=== PATIENT | female | born 1985 | race Caucasian/White ===

== ENCOUNTER 2016-05-23 04:39 | Emergency (ER) | payer BC, OTHER ==
[~2016-05-23] VITALS: Ht 165.1 cm; Wt 66.0 kg
[~2016-05-23 04:39] MED LIST: LEVO1TAB48 PO; ONDA4TAB35 PO
[2016-05-23 04:40] VITALS: Ht 165.1 cm; Wt 66.0 kg
--- NOTE | 2016-05-23 04:47 | ERA ---
ER Documentation Chief Complaint Date/Time DATE: 05/23/16 TIME: 04:47 Chief Complaint Right wrist pain HPI The patient is a 30-year-old female, presenting with acute right wrist and right hand pain after she slipped and fell in the ER. She is an RN in the emergency department. The pain is 5/10, worse with movement. She denies any other injury. She does not smoke, drink Past medical history: Migraine, GERD Past surgical history: None ROS All systems reviewed and are negative except as per history of present illness. Medications Home Meds Active Scripts Ibuprofen* (Motrin*) 600 Mg Tab, 600 MG PO Q6H Y for PAIN AND OR ELEVATED TEMP, #30 TAB Prov:SANDIE DUNCAN MD 05/23/16 Ondansetron Hcl* (Zofran* ODT) 4 mg -ODT Tab.disper, 4 MG PO Q6 Y for NAUSEA AND /OR VOMITING, #14 TAB Prov:JC CALI DO 07/27/15 Reported Medications Levonorgestrel-Eth Estradiol (MARLISSA) 1 Each Tablet, 1 EACH PO DAILY, TAB 07/27/15 Allergies Allergies: Coded Allergies: No Known Allergy (Verified , 12/29/14) PMhx/Soc History of Surgery: No Anesthesia Reaction: No Hx Neurological Disorder: No Hx Respiratory Disorders: No Hx Cardiac Disorders: Yes (HTN) Hx Psychiatric Problems: No Hx Miscellaneous Medical Probl: No Hx Alcohol Use: Yes Hx Substance Use: No Hx Tobacco Use: No Physical Exam Vitals Vital Signs Date Time Temp Pulse Resp B/P Pulse Ox O2 Delivery O2 Flow Rate FiO2 05/23/16 04:40 98.2 93 20 128/87 99 Physical Exam Const: No acute distress. Head: Atraumatic. Eyes: Normal Conjunctiva. ENT: Normal External Ears, Nose and Mouth. Neck: Full range of motion. No meningismus. Resp: Clear to auscultation bilaterally. Cardio: Regular rate and rhythm, no murmurs. Abd: Soft, non distended, normal bowel sounds, non tender. Skin: No petechiae or rashes. Back: No midline or flank tenderness. Ext: Right wrist is minimally tender at the lateral wrist, no ecchymosis, no laceration. Right hand is moderately tender at the base of the right thumb, with mild edema, no ecchymosis Neur: Awake and alert. No focal deficit Psych: Normal Mood and Affect. Procedures/MDM [place] [id number] Radiology Main Line: [phone] DIAGNOSTIC IMAGING REPORT Patient: KRISH WAGNER : 1985 Age: 30 Sex: F MR #: [id number] DOS: 05/23/16445 Ordering MD: SANDIE DUNCAN MD Location: E/R Room/Bed: PROCEDURE: XR Wrist. CLINICAL INDICATION: Right wrist pain following injury TECHNIQUE: AP, lateral and oblique views of the right wrist were performed. COMPARISON: No prior studies are available for comparison. FINDINGS: The osseous structures demonstrate normal alignment and mineralization. No acute fracture or dislocation is seen. The joint spaces are well preserved. No osseous erosions are seen. The soft tissues are unremarkable. IMPRESSION: Unremarkable right wrist x-ray series. RPTAT: HH .Allison Leon MD, MD Date Time Electronically viewed and signed by .Allison Leon MD, MD on 05/23/2016 05 :08 .G/ CC: SANDIE DUNCAN MD [place] [id number] Radiology Main Line: [phone] DIAGNOSTIC IMAGING REPORT Patient: KRISH WAGNER : 1985 Age: 30 Sex: F MR #: [id number] DOS: 05/23/16445 Ordering MD: SANDIE DUNCAN MD Location: E/R Room/Bed: PROCEDURE: XR Hand. CLINICAL INDICATION: Right hand pain following injury. TECHNIQUE: Three views of the right hand were obtained. COMPARISON: No prior studies are available for comparison. FINDINGS: The osseous structures demonstrate normal alignment and mineralization. No acute fracture or dislocation is seen. The joint spaces are well preserved. No significant soft tissue abnormalities are appreciated. IMPRESSION: 1. Unremarkable right hand x-ray series. 2. No acute fracture or dislocation is seen. RPTAT: HH .Allison Leon MD, MD Date Time Electronically viewed and signed by .Allison Leon MD, MD on 05/23/2016 05 :07 .G/ CC: SANDIE DUNCAN MD MEDICAL MAKING DECISION: The patient is a 30-year-old female, presenting with acute right wrist and right hand sprain. She took her Motrin with good response. The differential diagnoses considered include but are not limited to fracture, contusion, sprain, internal derangement Departure Diagnosis: Primary Impression: Hand pain, right Additional Impression: Wrist pain, right Condition: Good Comments She was discharged with Motrin she was advised that if the pain is persistent, she would need to have an MRI for further evaluation I discussed the findings with the patient. I advised the patient to follow-up with the primary physician in about 1-2 days, sooner if needed and return if any concern. The patient's blood pressure was elevated (>120/80) but appears stable without evidence of hypertension emergency or urgency. The patient was counseled about the risks of hypertension and urged to pursue outpatient monitoring and therapy within a week with their primary care physician. SANDIE DUNCAN MD May 23, 2016 04:47
--- NOTE | 2016-05-23 05:07 | RADRPT ---
PROCEDURE: XR Hand. CLINICAL INDICATION: Right hand pain following injury. TECHNIQUE: Three views of the right hand were obtained. COMPARISON: No prior studies are available for comparison. FINDINGS: The osseous structures demonstrate normal alignment and mineralization. No acute fracture or disloc ation is seen. The joint spaces are well preserved. No significant soft tissue abnormalities are a ppreciated. IMPRESSION: 1. Unremarkable right hand x-ray series. 2. No acute fracture or dislocation is seen. RPTAT: HH .Allison Leon MD, MD Date Time Electronically viewed and signed by .Allison Leon MD, on 05/23/2016 05:07 .G/
--- NOTE | 2016-05-23 05:09 | RADRPT ---
PROCEDURE: XR Wrist. CLINICAL INDICATION: Right wrist pain following injury TECHNIQUE: AP, lateral and oblique views of the right wrist were performed. COMPARISON: No prior studies are available for comparison. FINDINGS: The osseous structures demonstrate normal alignment and mineralization. No acute fracture or disloc ation is seen. The joint spaces are well preserved. No osseous erosions are seen. The soft tissue s are unremarkable. IMPRESSION: Unremarkable right wrist x-ray series. RPTAT: HH .Allison Leon MD, Date Time Electronically viewed and signed by .Allison Leon MD, on 05/23/2016 05:08 .G/
[2016-05-23] MEDS ORDERED: IBUP-1542 PO (05:30)
== END 2016-05-23 05:37 | disposition home or self-care (01) ==
LOC: E/R 04:39
DX: S69.91XA Unspecified injury of right wrist, hand and finger(s), initial encounter (principal); I10 Essential (primary) hypertension; W01.0XXA Fall on same level from slipping, tripping and stumbling without subsequent striking against object, initial encounter; Y92.9 Unspecified place or not applicable

== ENCOUNTER 2016-11-13 21:22 | Emergency (ER) | payer BC ==
[~2016-11-13] VITALS: Ht 162.6 cm; Wt 63.6 kg
[~2016-11-13 21:22] MED LIST changes: +IBUP-1542 PO
[2016-11-13 21:27] VITALS: Ht 162.6 cm; Wt 63.6 kg
[2016-11-13] MEDS ORDERED: ONDANSETRON 4 MG INJ IV STA (22:03)
[2016-11-13 22:16] LABS: ADD SCAN DIFF NO
[2016-11-13 22:18] LABS: BASOPHILS % 0.5 % (0.0-2.0); EOSINOPHILS # 0.1 10^3/ul (0.0-0.5); EOSINOPHILS % 0.9 % (0.0-7.0); LYMPHOCYTES # 2.3 10^3/ul (0.8-2.9); LYMPHOCYTES % 28.3 % (15.0-51.0); MEAN CORPUSCULAR HEMOGLOBIN 30.3 pg (29.0-33.0); MEAN CORPUSCULAR HGB CONC 33.3 g/dl (32.0-37.0); MEAN CORPUSCULAR VOLUME 90.9 fl (82.0-101.0); MEAN PLATELET VOLUME 10.8 fl (7.4-10.4); MONOCYTE # 0.7 10^3/ul (0.3-0.9); MONOCYTES % 8.7 % (0.0-11.0); NEUTROPHIL # 4.9 10^3/ul (1.6-7.5); NEUTROPHILS % 61.4 % (39.0-77.0); PLATELET COUNT 302 10^3/UL (140-415); RED BLOOD COUNT 4.95 10^6/ul (4.20-5.40); RED CELL DISTRIBUTION WIDTH 12.7 % (11.5-14.5)
[2016-11-13 22:32] LABS: ANION GAP 18 (8-16); BLOOD UREA NITROGEN 15 mg/dl (7-20); CALCIUM 9.2 mg/dl (8.4-10.2); CARBON DIOXIDE 23 mmol/L (21-31); CHLORIDE 105 mmol/L (97-110); CREATININE 0.75 mg/dl (0.44-1.00); GLUCOSE 103 mg/dl (70-220); POTASSIUM 3.5 mmol/L (3.5-5.1); SODIUM 142 mmol/L (135-144)
[2016-11-13 22:46] LABS: TROPONIN-I < 0.012 ng/ml (0.00-0.12)
[2016-11-13 22:59] LABS: THYROID STIMULATING HORMONE 0.755 MIU/L (0.465-4.680)
[2016-11-13 23:37] VITALS: BP 124/78; PULSE 78; RESP 18; TEMP 99.2
--- NOTE | 2016-11-14 01:45 | ERD ---
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 The patient says she has had these episodes off and on for 3 years. She said they were happening every other month now they occur about every month. There is no precipitating event. She is not taking any supplements or nutrients or stimulants. She says that she has had heart rate in the 120s-150s range when this occurs. Does not have any syncope. Does not have any chest pain no shortness of breath no loss of consciousness. Currently she is asymptomatic. ROS All systems reviewed and are negative except as per history of present illness. Medications Home Meds Active Scripts Ibuprofen* (Motrin*) 600 Mg Tab, 600 MG PO Q6H Y for PAIN AND OR ELEVATED TEMP, #30 TAB Prov:SANDIE DUNCAN MD 05/23/16 Ondansetron Hcl* (Zofran* ODT) 4 mg -ODT Tab.disper, 4 MG PO Q6 Y for NAUSEA AND /OR VOMITING, #14 TAB Prov:JC CALI DO 07/27/15 Reported Medications Levonorgestrel-Eth Estradiol (MARLISSA) 1 Each Tablet, 1 EACH PO DAILY, TAB 07/27/15 Allergies Allergies: Coded Allergies: No Known Allergy (Verified , 12/29/14) PMhx/Soc History of Surgery: No Anesthesia Reaction: No Hx Neurological Disorder: No Hx Respiratory Disorders: No Hx Cardiac Disorders: Yes (HTN) Hx Psychiatric Problems: No Hx Miscellaneous Medical Probl: No Hx Alcohol Use: Yes Hx Substance Use: No Hx Tobacco Use: No Smoking Status: Never smoker FmHx Family History: No coronary disease Physical Exam Vitals Vital Signs Date Time Temp Pulse Resp B/P Pulse Ox O2 Delivery O2 Flow Rate FiO2 11/13/16 23:37 99.2 78 18 124/78 100 Room Air 11/13/16 21:27 98.6 122 17 136/81 100 Physical Exam Const: Well-developed, well-nourished Head: Atraumatic, normocephalic Eyes: Normal Conjunctiva, PERRLA, EOMI, normal sclera, no nystagmus ENT: Normal External Ears, Nose and Mouth, moist mucus membranes. Neck: Full range of motion. No meningismus, no lymphadenopathy. Resp: Clear to auscultation bilaterally, no wheezing, rhonchi, rales Cardio: Regular rate and rhythm, no murmurs, S1 S2 present Abd: Soft, non tender x 4, non distended. Normal bowel sounds, no guarding or rebound, no pulsitile abdominal masses or bruits Skin: No petechiae or rashes, no ecchymosis , no maculopapular rash Back: No midline or flank tenderness Ext: No cyanosis, or edema, FROM x 4, normal inspection, neurovascularly intact x 4 Neur: Awake and alert, STR 5/5 x 4, sensation intact x 4, no focal findings, cerebellum intact Psych: Normal Mood and Affect Result Diagram: 11/13/16213111/13/162131 Results 24 hrs Laboratory Tests Test 11/13/16 21:32 White Blood Count 8.010^3/ul Red Blood Count 4.9510^6/ul Hemoglobin 15.0g/dl Hematocrit 45.0% Mean Corpuscular Volume 90.9fl Mean Corpuscular Hemoglobin 30.3pg Mean Corpuscular Hemoglobin Concent 33.3g/dl Red Cell Distribution Width 12.7% Platelet Count 38051^3/UL Mean Platelet Volume 10.8fl Neutrophils % 61.4% Lymphocytes % 28.3% Monocytes % 8.7% Eosinophils % 0.9% Basophils % 0.5% Nucleated Red Blood Cells % 0.0/100WBC Neutrophils # 4.910^3/ul Lymphocytes # 2.310^3/ul Monocytes # 0.710^3/ul Eosinophils # 0.110^3/ul Basophils # 0.010^3/ul Nucleated Red Blood Cells # 0.010^3/ul Sodium Level 142mmol/L Potassium Level 3.5mmol/L Chloride Level 105mmol/L Carbon Dioxide Level 23mmol/L Anion Gap 18 Blood Urea Nitrogen 15mg/dl Creatinine 0.75mg/dl Glucose Level 103mg/dl Calcium Level 9.2mg/dl Troponin I < 0.012ng/ml Thyroid Stimulating Hormone (TSH) 0.755MIU/L Free Thyroxine 1.11ng/dl Current Medications Medications (Trade) Dose Ordered Sig/Werner Route PRN Reason Start Time Stop Time Status Last Admin Dose Admin Ondansetron HCl (Zofran Inj) 4 mg ONCE STAT IV 11/13/16 22:03 11/13/16 22:05 DC 11/13/16 22:12 Procedures/MDM EKG: Rate/Rhythm: Normal Sinus Rhythm,NL intervals QRS, ST, QT: NORMAL WI, QRS, QT] Impression: NORMAL EKG Heart rate was in 153-155 range initially and then it was normal on exam. Patient has multiple episodes of this there is no evidence of hyperthyroidism. The patient needs to wear a Holter monitor or have an EP study. She will follow -up with her primary or center mgr Departure Diagnosis: Primary Impression: Palpitations Condition: Stable Patient Instructions: Palpitations JANET TANNER DO Nov 14, 2016 01:44
== END 2016-11-14 00:25 | disposition home or self-care (01) ==
LOC: FTE 21:22
DX: R00.2 Palpitations (principal); R11.2 Nausea with vomiting, unspecified; I10 Essential (primary) hypertension
CPT/HCPCS: 36415; 80048; 84439; 84443; 84484; 85025; 93005; 96374; 99284; J2405

== ENCOUNTER 2016-12-22 08:33 | Emergency (ER) | END 2016-12-22 13:20 | disposition home or self-care (01) | DX: G43.009 Migraine without aura, not intractable, without status migrainosus (principal); R11.2 Nausea with vomiting, unspecified; R40.2142 Coma scale, eyes open, spontaneous, at arrival to emergency department; R40.2252 Coma scale, best verbal response, oriented, at arrival to emergency department; R40.2362 Coma scale, best motor response, obeys commands, at arrival to emergency department | CPT/HCPCS: 70496; 80048; 81001; 85025; 85610; 85730; 96374; 96375; 96376; 99285; J0780; J1200; J1885; J2405; J7030; Q9967 ==

== ENCOUNTER 2017-10-15 19:43 | Emergency (ER) | END 2017-10-15 21:15 | disposition home or self-care (01) ==

== ENCOUNTER 2018-04-06 00:28 | Emergency (ER) | END 2018-04-06 02:03 | disposition home or self-care (01) ==

== ENCOUNTER 2018-07-09 02:03 | Emergency (ER) | payer BC ==
[~2018-07-09] VITALS: Ht 160 cm; Wt 81.8 kg
[~2018-07-09 02:03] MED LIST changes: +ALBU18HF INHALATION; +ALBU8.5H8 INH; +AZIT250T PO; +HYDR15SO8 PO; +IBUP800T48 PO; +ONDA4TAB14 PO; -ONDA4TAB35 PO; +PRED20TA PO
[2018-07-09] MEDS ORDERED: ONDANSETRON (ODT) 4 MG TAB ODT ONE (02:12)
--- NOTE | 2018-07-09 02:12 | ERD ---
ER Documentation Chief Complaint Chief Complaint palpitation HPI The patient is a 32-year-old female, presenting to the ER because of intermittent palpitation, associated with mild nausea and chest discomfort, denies syncope, near syncope, neck pain, abdominal pain, vomiting with dysuria. She does not smoke nor drink Medical/surgical history: None ROS All systems reviewed and are negative except as per history of present illness. Medications Home Meds Active Scripts Albuterol Sulfate* (Ventolin HFA*) 18 Gm Hfa.aer.ad, 2 PUFF INHALATION Q4H, #1 INHALER Prov:AMADOR BAUMAN 04/06/18 Prednisone* (Prednisone*) 20 Mg Tab, 40 MG PO DAILY for 4 Days, TAB Prov:AMADOR BAUMAN 04/06/18 Azithromycin* (Zithromax*) 250 Mg Tablet, 250 MG PO .ZPACK DIRECTED, #6 TAB TAKE 500 MG (2 TABS) THE FIRST DAY THEN 250 MG (1 TAB) DAYS 2-5 Prov:AMADOR BAUMAN 04/06/18 Hydrocodone Bit-Acetaminophen* (Lortab* Liq) 7.5 Mg-325 Mg/15 Ml Solution, 15 ML PO Q6H PRN for COUGH, #150 ML Prov:JANET TANNER DO 10/15/17 Ondansetron (Ondansetron Odt) 4 Mg Tab.rapdis, 4 MG PO Q6H PRN for NAUSEA AND/OR VOMITING, #30 TAB Prov:SYLVIE MUSA MD 12/22/16 Ibuprofen* (Motrin*) 800 Mg Tab, 800 MG PO Q6H PRN for PAIN AND OR ELEVATED TEMP, #30 TAB Prov:SYLVIE MUSA MD 12/22/16 Reported Medications Levonorgestrel-Eth Estradiol (MARLISSA) 1 Each Tablet, 1 EACH PO DAILY, TAB 07/27/15 Discontinued Scripts Prednisone* (Prednisone*) 20 Mg Tab, 60 MG PO DAILY for 5 Days, TAB Prov:JANET TANNER DO 10/15/17 Albuterol Sulfate* (Proair HFA*) 8.5 Gm Hfa.aer.ad, 2 PUFF INH Q4, #1 INHALER Prov:JANET TANNER DO 10/15/17 Ibuprofen* (Motrin*) 600 Mg Tab, 600 MG PO Q6H PRN for PAIN AND OR ELEVATED TEMP, #30 TAB Prov:SANDIE DUNCAN MD 05/23/16 Allergies Allergies: Coded Allergies: No Known Allergy (Unverified , 07/09/18) PMhx/Soc History of Surgery: No Anesthesia Reaction: No Hx Neurological Disorder: Yes (migraine) Hx Respiratory Disorders: No Hx Cardiac Disorders: No Hx Psychiatric Problems: No Hx Miscellaneous Medical Probl: Yes (GERD) Hx Alcohol Use: No Hx Substance Use: No Hx Tobacco Use: No Physical Exam Vitals Vital Signs Date Temp Pulse Resp B/P (MAP) Pulse Ox O2 O2 Flow FiO2 Time Delivery Rate 07/09/18 103 16 128/83 100 Room Air 04:14 (98) 07/09/18 98.4 148 20 124/85 100 02:14 (98) Physical Exam Const: No acute distress. Head: Atraumatic. Eyes: Normal Conjunctiva. ENT: Normal External Ears, Nose and Mouth. Neck: Full range of motion. No meningismus. Resp: Clear to auscultation bilaterally. Cardio: Regular rate and rhythm. Abd: Soft, non distended, normal bowel sounds, non tender. Skin: No petechiae or rashes. Back: No midline or flank tenderness. Ext: No cyanosis, or edema. Neur: Awake and alert. No focal deficit Psych: Normal Mood and Affect. Result Diagram: 07/09/18 0207 07/09/18 0207 Results 24 hrs Laboratory Tests Test 07/09/18 02:07 White Blood Count 8.6 10^3/ul Red Blood Count 4.77 10^6/ul Hemoglobin 14.5 g/dl Hematocrit 43.2 % Mean Corpuscular Volume 90.6 fl Mean Corpuscular Hemoglobin 30.4 pg Mean Corpuscular Hemoglobin Concent 33.6 g/dl Red Cell Distribution Width 12.4 % Platelet Count 297 10^3/UL Mean Platelet Volume 10.5 fl Immature Granulocytes % 0.300 % Neutrophils % 66.0 % Lymphocytes % 28.6 % Monocytes % 4.7 % Eosinophils % 0.1 % Basophils % 0.3 % Nucleated Red Blood Cells % 0.0 /100WBC Immature Granulocytes # 0.030 10^3/ul Neutrophils # 5.7 10^3/ul Lymphocytes # 2.5 10^3/ul Monocytes # 0.4 10^3/ul Eosinophils # 0.0 10^3/ul Basophils # 0.0 10^3/ul Nucleated Red Blood Cells # 0.0 10^3/ul D-Dimer < 220.00 ng/ml D-Dimer Comment Sodium Level 143 mmol/L Potassium Level 3.7 mmol/L Chloride Level 105 mmol/L Carbon Dioxide Level 23 mmol/L Anion Gap 15 Blood Urea Nitrogen 12 mg/dl Creatinine 0.72 mg/dl Est Glomerular Filtrat Rate mL/min > 60 mL/min Glucose Level 137 mg/dl Calcium Level 9.3 mg/dl Total Bilirubin 0.4 mg/dl Direct Bilirubin 0.00 mg/dl Indirect Bilirubin 0.4 mg/dl Aspartate Amino Transf (AST/SGOT) 25 IU/L Alanine Aminotransferase (ALT/SGPT) 30 IU/L Alkaline Phosphatase 79 IU/L Troponin I < 0.012 ng/ml Total Protein 8.3 g/dl Albumin 4.7 g/dl Globulin 3.60 g/dl Albumin/Globulin Ratio 1.30 Thyroid Stimulating Hormone (TSH) 0.732 MIU/L Beta HCG, Quantitative < 2.4 mIU/ml Current Medications Medications Dose Sig/Werner Start Time Status Last (Trade) Ordered Route PRN Stop Time Admin Dose Reason Admin Ondansetron 4 mg ONCE ONCE 07/09/18 DC 07/09/18 HCl (Zofran ODT 02:12 02:17 Odt) 07/09/18 02:13 Procedures/MDM EK:24 AM read by emergency physician Rate/Rhythm: Normal Sinus Rhythm 81 beats/min QRS, ST, T-waves: No ST elevation, no T inversion, SA Impression: Abnormal EKG EKG: At 2:25 AM read by emergency physician Rate/Rhythm: Sinus tachycardia 143 beats/min QRS, ST, T-waves: No ST elevation, no T inversion Impression: Abnormal EKG MEDICAL MAKING DECISION: The patient is a 32-year-old female, presenting with acute palpitation of unclear etiology, is above outpatient follow-up The differential diagnoses considered include but are not limited to bradycardia tachycardia syndrome, arrhythmia, thyroid dz Departure Diagnosis: Primary Impression: Palpitations Condition: Good Comments The patient's blood pressure was elevated (>120/80) but appears stable without evidence of hypertension emergency or urgency. The patient was counseled about the risks of hypertension and urged to pursue outpatient monitoring and therapy within a week with their primary care physician. I discussed the findings with the patient. I advised the patient to follow-up with the primary physician/ cardiology Dr Neal in about 2-3 days, sooner if needed and return if any concern. Disclaimer: Inadvertent spelling and grammatical errors are likely due to EHR/dictation software use and do not reflect on the overall quality of patient care. Also, please note that the electronic time recorded on this note does not necessarily reflect the actual time of the patient encounter. SANDIE DUNCAN MD Jul 09, 2018 02:12
[2018-07-09 02:14] VITALS: Ht 160 cm; Wt 81.8 kg
[2018-07-09 04:14] VITALS: BP 128/83; PULSE 103; RESP 16
== END 2018-07-09 04:16 | disposition home or self-care (01) ==
LOC: E/R 02:03
DX: R00.2 Palpitations (principal); R11.0 Nausea
CPT/HCPCS: 80053; 84443; 84484; 84702; 85025; 85378; 93005

== ENCOUNTER 2018-08-09 21:34 | Emergency (ER) | payer BC ==
[~2018-08-09] VITALS: Wt 81.8 kg
[~2018-08-09 21:34] MED LIST changes: -ALBU8.5H8 INH; -IBUP-1542 PO
[2018-08-09] MEDS ORDERED: PROCHLORPERAZINE 10 MG INJ IV STA (21:48)
[2018-08-09] MEDS ORDERED: DIPHENHYDRAMINE 50 MG INJ IV STA (21:48)
[2018-08-09] MEDS ORDERED: SOD CHLORIDE 0.9% 1,000 ML IV STA (21:48)
[2018-08-09] MEDS ORDERED: KETOROLAC 30 MG INJ IV STA (21:48)
[2018-08-09] MEDS ORDERED: BUTA1CAP38 PO (23:13)
[2018-08-09 23:39] VITALS: BP 100/68; PULSE 71; RESP 19
--- NOTE | 2018-08-10 03:38 | ERD ---
ER Documentation Chief Complaint Chief Complaint headache and vomiting since yesterday HPI 32-year-old female presenting with left-sided headache that started yesterday. She has associated photophobia, nausea, and vomiting. She states that this is typical of her migraines. Usually her migraines improved with the use of Excedrin or ibuprofen, however at this time those medications did not help significantly but did help slightly. She states that the pain is not any different than her usual migraines. The pain was gradual in onset. It is on the left side of her head and face, nonradiating. ROS All systems reviewed and are negative except as per history of present illness. Medications Home Meds Active Scripts Aeoxatpwnn-Brkkvjqoojtid-Ywvbxybl* (Fioricet*) 50-300-40 Mg Capsule, 1 CAP PO Q4H PRN for HEADACHE, #20 CAP Prov:MARIEL MEDINA MD 08/09/18 Albuterol Sulfate* (Ventolin HFA*) 18 Gm Hfa.aer.ad, 2 PUFF INHALATION Q4H, #1 INHALER Prov:AMADOR BAUMAN 04/06/18 Prednisone* (Prednisone*) 20 Mg Tab, 40 MG PO DAILY for 4 Days, TAB Prov:AMADOR BAUMAN 04/06/18 Azithromycin* (Zithromax*) 250 Mg Tablet, 250 MG PO .ZPACK DIRECTED, #6 TAB TAKE 500 MG (2 TABS) THE FIRST DAY THEN 250 MG (1 TAB) DAYS 2-5 Prov:AMADOR BAUMAN 04/06/18 Hydrocodone Bit-Acetaminophen* (Lortab* Liq) 7.5 Mg-325 Mg/15 Ml Solution, 15 ML PO Q6H PRN for COUGH, #150 ML Prov:JANET TANNER DO 10/15/17 Ondansetron (Ondansetron Odt) 4 Mg Tab.rapdis, 4 MG PO Q6H PRN for NAUSEA AND/OR VOMITING, #30 TAB Prov:SYLVIE MUSA MD 12/22/16 Ibuprofen* (Motrin*) 800 Mg Tab, 800 MG PO Q6H PRN for PAIN AND OR ELEVATED TEMP, #30 TAB Prov:SYLVIE MUSA MD 12/22/16 Reported Medications Levonorgestrel-Eth Estradiol (MARLISSA) 1 Each Tablet, 1 EACH PO DAILY, TAB 07/27/15 Allergies Allergies: Coded Allergies: No Known Allergy (Unverified , 07/09/18) PMhx/Soc History of Surgery: No Anesthesia Reaction: No Hx Neurological Disorder: Yes (migraine) Hx Respiratory Disorders: No Hx Cardiac Disorders: No Hx Psychiatric Problems: No Hx Miscellaneous Medical Probl: Yes (GERD) Hx Alcohol Use: Yes (social) Hx Substance Use: No Hx Tobacco Use: No Smoking Status: Never smoker FmHx Family History: No diabetes Physical Exam Vitals Vital Signs Date Temp Pulse Resp B/P (MAP) Pulse Ox O2 O2 Flow FiO2 Time Delivery Rate 08/09/18 98.2 71 19 100/68 99 Room Air 23:39 (79) 08/09/18 87 19 125/90 98 Room Air 22:19 (102) 08/09/18 21:40 Physical Exam Const: Mild distress due to the pain Head: Atraumatic Eyes: Normal Conjunctiva, PERRLA, EOMI, no nystagmus ENT: Normal External Ears, Nose and Mouth. Neck: Full range of motion. No meningismus. Resp: Clear to auscultation bilaterally Cardio: Regular rate and rhythm, no murmurs Abd: Soft, non tender, non distended. Normal bowel sounds Skin: No petechiae or rashes Back: No midline or flank tenderness Ext: No cyanosis, or edema Neur: Awake and alert, oriented x3, cranial nerves intact, normal speech, strength and sensations grossly intact in all 4 extremities Psych: Normal Mood and Affect Results 24 hrs Laboratory Tests Test 08/09/18 22:10 POC Beta HCG, Qualitative NEGATIVE Current Medications Medications Dose Sig/Werner Start Time Status Last (Trade) Ordered Route PRN Stop Time Admin Dose Reason Admin Sodium 1,000 ml @ Q1H STAT 08/09/18 DC 08/09/18 Chloride 1,000 mls/hr IV 21:48 22:00 08/09/18 22:47 10 mg ONCE STAT 08/09/18 DC 08/09/18 Prochlorperaz IV 21:48 21:59 ine 08/09/18 21:50 (Compazine Inj) Ketorolac 30 mg ONCE STAT 08/09/18 DC 08/09/18 Tromethamine IV 21:48 22:00 (Toradol) 08/09/18 21:50 25 mg ONCE STAT 08/09/18 DC 08/09/18 Diphenhydrami IV 21:48 21:59 ne HCl 08/09/18 21:50 (Benadryl) Procedures/MDM Patient is presenting with her typical migraine, not relieved with usual therapies at home. Vitals were unremarkable. She was treated with IV fluids, Toradol, Benadryl, and Compazine IV. Upon reevaluation, patient's neurologic symptoms have stabilized. No e/o meningitis, intracranial bleed, seizure, stroke. Patient is stable for discharge. Prescription for Fioricet given. Return precautions discussed. Departure Diagnosis: Primary Impression: Migraine Migraine type: unspecified Status migrainosus presence: without status migrainosus Intractability: not intractable Qualified Codes: G43.909 - Migraine, unspecified, not intractable, without status migrainosus Condition: Stable Patient Instructions: Migraines and Cluster Headaches MARIEL MEDINA MD Aug 10, 2018 03:38
== END 2018-08-09 23:41 | disposition home or self-care (01) ==
LOC: E/R 21:34
DX: G43.909 Migraine, unspecified, not intractable, without status migrainosus (principal)
CPT/HCPCS: 36415; 81025; 96374; 96375; 99284; J0780; J1200; J1885; J7030

== ENCOUNTER → 2018-08-26 | Emergency (ER) | payer BC ==
[~2018-08-26] VITALS: Ht 167.6 cm; Wt 81.8 kg
[~2018-08-26] MED LIST changes: +BUTA1CAP38 PO; +CIPR-193 PO; +CIPROFLOXACIN 500 MG TAB PO ONE
[2018-08-26 19:58] VITALS: BP 143/95; PULSE 100; RESP 18; Ht 167.6 cm; Wt 81.8 kg
--- NOTE | 2018-08-26 20:08 | ERD ---
ER Documentation Chief Complaint Chief Complaint dysuria x's 2 days HPI 32-year-old female presenting with dysuria for the past 2 days with frequency and urgency. No associated fever, chills, nausea, vomiting, abdominal pain, back pain, or hematuria. ROS All systems reviewed and are negative except as per history of present illness. Medications Home Meds Active Scripts Ciprofloxacin Hcl* (Ciprofloxacin Hcl*) 250 Mg Tablet, 250 MG PO BID, #6 TAB Prov:MARIEL MEDINA MD 08/26/18 Scuoulenvw-Dscyhjusercye-Ewwbposi* (Fioricet*) 50-300-40 Mg Capsule, 1 CAP PO Q4H PRN for HEADACHE, #20 CAP Prov:MARIEL MEDINA MD 08/09/18 Albuterol Sulfate* (Ventolin HFA*) 18 Gm Hfa.aer.ad, 2 PUFF INHALATION Q4H, #1 INHALER Prov:AMADOR BAUMAN 04/06/18 Prednisone* (Prednisone*) 20 Mg Tab, 40 MG PO DAILY for 4 Days, TAB Prov:AMADOR BAUMAN 04/06/18 Azithromycin* (Zithromax*) 250 Mg Tablet, 250 MG PO .ZPACK DIRECTED, #6 TAB TAKE 500 MG (2 TABS) THE FIRST DAY THEN 250 MG (1 TAB) DAYS 2-5 Prov:AMADOR BAUMAN 04/06/18 Hydrocodone Bit-Acetaminophen* (Lortab* Liq) 7.5 Mg-325 Mg/15 Ml Solution, 15 ML PO Q6H PRN for COUGH, #150 ML Prov:JANET TANNER DO 10/15/17 Ondansetron (Ondansetron Odt) 4 Mg Tab.rapdis, 4 MG PO Q6H PRN for NAUSEA AND/OR VOMITING, #30 TAB Prov:SYLVIE MUSA MD 12/22/16 Ibuprofen* (Motrin*) 800 Mg Tab, 800 MG PO Q6H PRN for PAIN AND OR ELEVATED TEMP, #30 TAB Prov:SYLVIE MUSA MD 12/22/16 Reported Medications Levonorgestrel-Eth Estradiol (MARLISSA) 1 Each Tablet, 1 EACH PO DAILY, TAB 07/27/15 Allergies Allergies: Coded Allergies: No Known Allergy (Unverified , 07/09/18) PMhx/Soc Medical and Surgical Hx: pt denies Medical Hx, pt denies Surgical Hx History of Surgery: No Anesthesia Reaction: No Hx Neurological Disorder: Yes (migraine) Hx Respiratory Disorders: No Hx Cardiac Disorders: No Hx Psychiatric Problems: No Hx Miscellaneous Medical Probl: Yes (GERD) Hx Alcohol Use: No Hx Substance Use: No Hx Tobacco Use: No Smoking Status: Never smoker FmHx Family History: No diabetes Physical Exam Vitals Vital Signs Date Temp Pulse Resp B/P (MAP) Pulse Ox O2 O2 Flow FiO2 Time Delivery Rate 08/26/18 98.6 100 18 143/95 99 19:58 (111) Physical Exam Const: No acute distress, nontoxic Resp: No respiratory distress Abd: Soft, non tender Back: No midline or flank tenderness Neur: Awake and alert Psych: Normal Mood and Affect Results 24 hrs Laboratory Tests Test 08/26/18 20:06 08/26/18 20:08 Bedside Urine pH (LAB) 6.0 Bedside Urine Protein (LAB) Negative Bedside Urine Glucose (UA) Negative Bedside Urine Ketones (LAB) Trace Bedside Urine Blood 2+ Bedside Urine Nitrite (LAB) Negative Bedside Urine Leukocyte Esterase (L 1+ POC Beta HCG, Qualitative NEGATIVE Current Medications Medications Dose Sig/Werner Start Time Status Last (Trade) Ordered Route PRN Stop Time Admin Dose Reason Admin 500 mg ONCE ONCE 08/26/18 DC 08/26/18 Ciprofloxacin PO 20:00 20:09 (Cipro) 08/26/18 20:01 Procedures/MDM Patient is presenting with signs and symptoms consistent with a UTI. Vitals are unremarkable and she is afebrile. Do not suspect acute surgical abdomen or pyelonephritis. He was treated with 1 dose of Cipro here as she states that this is helped her in the past. Prescription for ciprofloxacin for 3 days given. Return precautions discussed. Potential discharge patient's blood pressure was elevated (>120/80) but appears stable without evidence of hypertension emergency or urgency. The patient was counseled about the risks of hypertension and urged to pursue outpatient monitoring and therapy within a week with their primary care physician. Departure Diagnosis: Primary Impression: UTI (urinary tract infection) Urinary tract infection type: site unspecified Hematuria presence: without hematuria Qualified Codes: N39.0 - Urinary tract infection, site not specified Condition: Stable Patient Instructions: Understanding Urinary Tract Infections (UTIs) MARIEL MEDINA MD Aug 26, 2018 20:08
== END | disposition home or self-care (01) ==
LOC: E/R 19:49
DX: N39.0 Urinary tract infection, site not specified (principal)
CPT/HCPCS: 81003; 81025; 99283